=== PATIENT | male | born 1965 | race Caucasian/White ===

== ENCOUNTER 2016-10-23 16:00 | Emergency (ER) | payer MEDICAID ==
[2016-10-23 16:15] VITALS: BMI 26.6
--- NOTE | 2016-10-23 16:31 | C.PDOC ---
History Of Present Illness 51 y/o male presents to ED with complaints of Left elbow and foot pain since yesterday. S/P accidentally tripped and fell landing on L elbow. Pain is worse with moment but is weight bearing. Patient denies numbness, weakness or any other complaints at this time. CO L ELBOW AND L FOOT PAIN YEST. S/P ACCID TRIP AND FALL, LANDED ON L ELBOW. PAIN WORSE W MOVEMENT, WT BEAR. NO OTHER ASSOC SX EXAM LUE AROM FULL SUPINATION WO DIFF; ATRAUM. TEND GEN L OLECRANON PROCESS. L FOOT TEND BASE L 1 AND 3/4 TOE. NO SWELL, DEFORM SKIN INTACT ATRAUM NEURO INTACT - HPI Time Seen by Provider: 10/23/16 16:22 Chief Complaint (Nursing): Upper Extremity Problem/Injury History Per: Patient History/Exam Limitations: no limitations Onset/Duration Of Symptoms: Days Location Of Injury: Left: Elbow, Foot Past Medical History Reviewed: Historical Data, Nursing Documentation, Vital Signs Vital Signs: Last Vital Signs Temp 98.1 F 10/23/16 17:47 Pulse 90 10/23/16 17:47 Resp 16 10/23/16 17:47 BP 144/90 10/23/16 17:47 Pulse Ox 98 10/23/16 17:47 - Medical History PMH: Anxiety, Depression, Diabetes, HTN, Hypercholesterolemia, Hyperlipidemia, Migraine - [facility] Procedures INDIVID PSYCHOTHERAP NEC (02/13/14) OTHER GROUP THERAPY (02/13/14) Family History: States: Unknown Family Hx - Social History Hx Alcohol Use: No Hx Substance Use: No - Immunization History Hx Tetanus Toxoid Vaccination: Yes Hx Influenza Vaccination: Yes Hx Pneumococcal Vaccination: Yes Review Of Systems Except As Marked, All Systems Reviewed And Found Negative. Constitutional: Negative for: Weakness Eyes: Negative for: Vision Change Gastrointestinal: Negative for: Nausea, Vomiting, Diarrhea Musculoskeletal: Positive for: Arm Pain, Foot Pain Skin: Negative for: Rash Neurological: Negative for: Headache, Dizziness Physical Exam - Physical Exam Appears: Non-toxic, No Acute Distress Skin: Normal Color, Warm Head: Atraumatic, Normacephalic Eye(s): bilateral: Normal Inspection Oral Mucosa: Moist Extremity: Normal ROM (LUE), Tenderness (General Left Tenderness Olecranon process, Left foot Tenderness Base Left 1 and 3/4 Toe), No Deformity, No Swelling, Other (Full Supination without differential) Extremity: Bilateral: Atraumatic Neurological/Psych: Oriented x3, Normal Speech, Normal Cognition ED Course And Treatment O2 Sat by Pulse Oximetry: 97 (RA) Pulse Ox Interpretation: Normal - Other Rad L ELBOW X-Ray: Interpreted by Me (NEG) L FOOT X-Ray: Interpreted by Me (NEG) Disposition Counseled Patient/Family Regarding: Studies Performed, Diagnosis, Need For Followup - Disposition Referrals: YOUR,PMD [Other] Disposition: HOME/ ROUTINE Disposition Time: 17:00 Condition: GOOD Additional Instructions: TAKE MOTRIN AND/OR TYLENOL DIRECTED FOR PAIN Instructions: Elbow Sprain (ED), Foot Contusion (ED) Forms: Work Excuse - Clinical Impression Clinical Impression: Toe contusion, Elbow contusion - PA / POTATO INSPECTOR / Resident Statement MD/DO has reviewed & agrees with the documentation as recorded. MD/DO has examined the patient and agrees with the treatment plan. - Scribe Statement The provider has reviewed the documentation as recorded by the [employer] All medical record entries made by the Walker were at my direction and personally dictated by me. I have reviewed the chart and agree that the record accurately reflects my personal performance of the history, physical exam, medical decision making, and the department course for this patient. I have also personally directed, reviewed, and agree with the discharge instructions and disposition.
[2016-10-23 17:48] VITALS: BP 144/90; PULSE 90; RESP 16; TEMP 98.1
--- NOTE | 2016-10-23 17:51 | RAD ---
PROCEDURE: Radiographs of the left elbow. HISTORY: TRAUMA COMPARISON: No prior. FINDINGS: BONES: No acute fracture. Small olecranon spur. JOINTS: Normal. No osteoarthritis. SOFT TISSUES: Normal. JOINT EFFUSION: None. OTHER FINDINGS: None IMPRESSION: No acute findings related to/accounting for the clinical presentation. Concordant results with the preliminary interpretation rendered by the emergency department physician procedure.
--- NOTE | 2016-10-23 17:56 | RAD ---
PROCEDURE: Left Foot Radiographs. HISTORY: Recent trauma. COMPARISON: None. FINDINGS: BONES: Normal. No fracture. JOINTS: Normal. SOFT TISSUES: Normal. OTHER FINDINGS: None. IMPRESSION: No significant or acute findings to account for/ related to the clinical presentation. Concordant results with the preliminary interpretation rendered by the emergency department physician procedure.
[2016-10-23 18:13] VITALS: O2SAT 97
== END 2016-10-23 18:10 | disposition home or self-care (01) ==
LOC: C.ER 16:00
DX: S50.02XA Contusion of left elbow, initial encounter (principal); S90.112A Contusion of left great toe without damage to nail, initial encounter; S90.122A Contusion of left lesser toe(s) without damage to nail, initial encounter; W01.0XXA Fall on same level from slipping, tripping and stumbling without subsequent striking against object, initial encounter

== ENCOUNTER 2017-07-25 17:59 | Emergency (ER) | payer MEDICAID ==
[2017-07-25 18:13] VITALS: BMI 24.7
[2017-07-25 18:14] VITALS: BP 129/83; PULSE 97; TEMP 98.2; O2SAT 98
[2017-07-25] MEDS ORDERED: Promethazine/Cod 6.25mg-10mg/5ml Syr UD PO STA (18:57)
[2017-07-25] MEDS ORDERED: Albuterol 0.083% Inhal Sol (2.5 mg/3 mL) UD IH STA (18:58)
[2017-07-25] MEDS ORDERED: Albuterol 0.083% Inhal Sol (2.5 mg/3 mL) UD ONE (19:10)
[2017-07-25] MEDS ORDERED: Promethazine/Cod 6.25mg-10mg/5ml Syr UD ONE (19:12)
--- NOTE | 2017-07-25 19:58 | C.PDOC ---
History Of Present Illness 51 yo male w/PMhx of HTN, NIDDM come inf or evaluation of cold sx for past 2 weeks associated with malaise, nasal congestion, runny nose, productive cough with yellow sputum. Pt reports, cough worse over time, constant, worse at night time. Otherwise, pt denies high fever, headache, dizziness, neck pain, drooling , dysphagia, dyspnea, SOB, CP, wheezing, abd. pain, V/D, back pain. Ambulate to ED for evaluation, not in nay apparent distress. Time Seen by Provider: 07/25/17 18:24 Chief Complaint (Nursing): Flu-like Symptoms History Per: Patient Onset/Duration Of Symptoms: Gradual Past Medical History Reviewed: Historical Data, Nursing Documentation, Vital Signs Vital Signs: Last Vital Signs Temp 98.2 F 07/25/17 18:13 Pulse 97 H 07/25/17 18:13 Resp 20 07/25/17 20:30 BP 129/83 07/25/17 18:13 Pulse Ox 98 07/25/17 20:00 - Medical History PMH: Anxiety, Depression, Diabetes, HTN, Hypercholesterolemia, Hyperlipidemia, Migraine Denies: Hepatitis, HIV, Chronic Kidney Disease, Seizures, Sexually Transmitted Disease - [facility] Procedures INDIVID PSYCHOTHERAP NEC (02/13/14) OTHER GROUP THERAPY (02/13/14) Family History: States: Unknown Family Hx - Social History Hx Tobacco Use: No Hx Alcohol Use: No Hx Substance Use: No - Immunization History Hx Tetanus Toxoid Vaccination: Yes Hx Influenza Vaccination: Yes Hx Pneumococcal Vaccination: Yes Review Of Systems Except As Marked, All Systems Reviewed And Found Negative. Constitutional: Positive for: Malaise. Negative for: Fever ENT: Positive for: Nose Discharge, Nose Congestion. Negative for: Ear Discharge , Throat Pain, Throat Swelling Cardiovascular: Negative for: Chest Pain, Palpitations, Edema, Light Headedness Respiratory: Positive for: Cough. Negative for: Shortness of Breath, Wheezing Gastrointestinal: Negative for: Nausea, Vomiting, Abdominal Pain, Diarrhea Genitourinary: Negative for: Dysuria Musculoskeletal: Negative for: Neck Pain Skin: Negative for: Rash Neurological: Negative for: Altered Mental Status, Headache, Dizziness Physical Exam - Physical Exam Appears: Well, Non-toxic, No Acute Distress Skin: Normal Color, Warm, Dry, No Rash Head: Normacephalic Eye(s): bilateral: PERRL Ear(s): Bilateral: Normal Nose: No Flaring, Discharge (nasal congestion with clear scant rhinorrhea), No Deformity, No Tenderness Oral Mucosa: Moist Tongue: Normal Appearing Lips: Normal Appearing Throat: Erythema (mild B/L), No Drooling Neck: Trachea Midline, Supple Cardiovascular: Rhythm Regular, No Murmur, No JVD, Other ((-) carotid bruits B/L ) Respiratory: No Decreased Breath Sounds, No Accessory Muscle Use, No Rales, No Rhonchi, No Stridor, Wheezing (scattered Right basilar expiratory wheezing) Gastrointestinal/Abdominal: Soft, No Tenderness, No Distention, No Guarding Back: No CVA Tenderness Extremity: No Pedal Edema, No Deformity Neurological/Psych: Oriented x3, Normal Speech ED Course And Treatment O2 Sat by Pulse Oximetry: 98 Pulse Ox Interpretation: Normal - Radiology CXR: Interpreted by Me, Viewed By Me CXR Interpretation: Yes: No Acute Disease Progress Note: On re-evaluation, pt is afebrile, hemodynamicaly stable. Non- toxic. Tolerate Po well in ED. PulsEOx 98% RA. neck: Supple, (-) meningeal sign. ENT: north cute findings. Lungs: CTA B/L, BS equal B/L. CVS: (+)S1S2, reg. Abd: benign, (-) guaridng, (-) rebound. Neuorlogicaly intact. CXR- normal study. Pt has clinical findings c/w acute bronchitis. Pt advised to F/ u with PMD in 2-3 days for re-eavl. return to Ed if any worsening or new changes. Disposition Counseled Patient/Family Regarding: Studies Performed, Diagnosis, Need For Followup, Rx Given - Disposition Referrals: Laura Huitron MD [Staff Provider] - Disposition: HOME/ ROUTINE Disposition Time: 19:56 Condition: STABLE Additional Instructions: Encourage fluids take medication as prescribed Follow up with PMD in 21-3 days for re-evaluation. Return to ED if any worsening or new changes. Prescriptions: Azithromycin [Zithromax] 250 mg PO DAILY #4 tab Prednisone [Deltasone] 40 mg PO DAILY #6 tablet Promethazine/Codeine [Phenergan/Codeine Oral Syrup] 10 ml PO TID #90 ml Instructions: Acute Bronchitis Forms: [employer] (Georgian) - Clinical Impression Clinical Impression: Bronchitis
[2017-07-25 20:31] VITALS: RESP 20
--- NOTE | 2017-07-26 09:11 | RAD ---
HISTORY: Cough COMPARISON: No prior. TECHNIQUE: Chest PA and lateral FINDINGS: LUNGS: No consolidation. The infrahilar peribronchial are vascular markings -especially the infrahilar bronchial markings have slight increased thickening surrounding them chronicity of this is unknown. PLEURA: No significant pleural effusion identified. No pneumothorax apparent. CARDIOVASCULAR: Normal. OSSEOUS STRUCTURES: Thoracic spondylosis VISUALIZED UPPER ABDOMEN: Normal. OTHER FINDINGS: None. IMPRESSION: No consolidative infiltrate. Possible bilateral infrahilar peribronchial thickening -nonspecific can be seen with peribronchial inflammatory changes - for example bronchitis. Chronicity unknown.
== END 2017-07-25 20:30 | disposition home or self-care (01) ==
LOC: C.ER 17:59
DX: J40 Bronchitis, not specified as acute or chronic (principal); I10 Essential (primary) hypertension; E11.9 Type 2 diabetes mellitus without complications; E78.00 Pure hypercholesterolemia, unspecified; E78.5 Hyperlipidemia, unspecified

== ENCOUNTER 2018-09-15 21:02 | Emergency (ER) | payer MEDICAID ==
[2018-09-15] MEDS ORDERED: Sodium Chloride 0.9% 1,000 ML IV ONE ×2 (21:54)
[2018-09-15] MEDS ORDERED: (Novolin R) Insulin Human Regular 100 units/ml vial IVP ONE (21:55)
[2018-09-15 22:22] LABS: BASO % 0.8 % (0.0-2.0); EOS # 0.1 K/uL (0.0-0.7); EOS % 1.3 % (0.0-4.0); HEMOGLOBIN 15.4 g/dL (12.0-18.0); LYMPH # 2.1 K/uL (1.0-4.3); MEAN CELL VOLUME 79.2 fL (80.0-94.0); MEAN CORPUSCULAR HEMOGLOBIN 25.7 pg (27.0-31.0); MEAN CORPUSCULAR HGB CONC 32.5 g/dL (33.0-37.0); MEAN PLATELET VOLUME 8.3 fL (7.2-11.7); MONO # 0.5 K/uL (0.0-0.8); MONO % 9.5 % (0.0-10.0); NEUT # 2.5 K/uL (1.8-7.0); NEUT % 47.4 % (50.0-75.0); NRBC % 0.1 % (0.0-2.0); RED CELL DISTRIBUTION WIDTH 13.8 % (11.5-14.5); WHITE BLOOD COUNT 5.2 K/uL (4.8-10.8)
[2018-09-15] MEDS ORDERED: Sodium Chloride 0.9% 2,000 ML ONE (22:32)
[2018-09-15] MEDS ORDERED: (Novolin R) Insulin Human Regular 100 units/ml vial ONE (22:32)
[2018-09-15 22:38] LABS: ALB/GLOB RATIO 1.5 (1.0-2.1); ALBUMIN 4.4 g/dL (3.5-5.0); ALT/SGPT 22 U/L (21-72); AST/SGOT 19 U/L (17-59); BLOOD UREA NITROGEN 12 mg/dL (9-20); CALCIUM 9.6 mg/dl (8.6-10.4); GFR NON-AFRICAN AMERICAN > 60
[2018-09-15 22:45] LABS: SQUAMOUS EPITHIAL < 1 /hpf (0-5); URINE BILIRUBIN NEGATIVE (NEGATIVE); URINE BLOOD NEGATIVE (NEGATIVE); URINE CLARITY Clear (Clear); URINE COLOR Straw (YELLOW); URINE GLUCOSE (UA) 3+ mg/dL (Normal); URINE LEUKOCYTE ESTERASE NEG Leu/uL (Negative); URINE PROTEIN NEGATIVE (NEGATIVE); URINE UROBILINOGEN NORMAL mg/dL (0.2-1.0)
--- NOTE | 2018-09-15 22:46 | C.PDOC ---
History Of Present Illness 52-year-old male presents to the ED for evaluation of elevated blood sugar. Patient states he stopped taking his medication for 3 months and has not been feeling well. Patient also complains of non-productive cough. He denies fever, chills or any pain at this time. Chief Complaint (Nursing): Cough, Cold, Congestion History Per: Patient History/Exam Limitations: no limitations Onset/Duration Of Symptoms: Hrs Current Symptoms Are (Timing): Still Present Additional History Per: Patient Past Medical History Reviewed: Historical Data, Nursing Documentation, Vital Signs Vital Signs: Last Vital Signs Temp 98.6 F 09/15/18 21: Pulse 83 09/15/18 21:17 Resp 20 09/15/18 21:17 BP 148/82 09/15/18 21: Pulse Ox 99 09/15/18 21:17 Primary Care Provider: Laura Huitron - Medical History PMH: Hypercholesterolemia Surgical History: No Surg Hx Family History: States: Unknown Family Hx - Social History Hx Alcohol Use: No Hx Substance Use: No Review Of Systems Constitutional: Positive for: Other (elevated blood sugar ). Negative for: Fever, Chills Respiratory: Positive for: Cough. Negative for: Sputum Physical Exam - Physical Exam Appears: Non-toxic, No Acute Distress Skin: Normal Color, Warm, Dry Head: Atraumatic, Normacephalic Eye(s): bilateral: Normal Inspection Oral Mucosa: Moist Neck: Supple Chest: Symmetrical, No Deformity, No Tenderness Cardiovascular: Rhythm Regular, No Murmur Respiratory: Normal Breath Sounds, No Rales, No Rhonchi, No Wheezing Gastrointestinal/Abdominal: Soft, No Tenderness, No Guarding, No Rebound Extremity: Normal ROM, Capillary Refill (less than 2 seconds ) Neurological/Psych: Oriented x3, Normal Speech, Normal Cognition, Other (neurolo gically intact, no focal deficits ) ED Course And Treatment - Laboratory Results Result Diagrams: 09/15/18 22:09/15/18: Lab Results: Total Bilirubin 0.4 mg/dL (0.2-1.3) 09/15/18 22: AST 19 U/L (17-59) 09/15/18 22: ALT 22 U/L (21-72) 09/15/18: Alkaline Phosphatase 94 U/L (38-126) 09/15/18 22:19 Total Protein 7.2 g/dL (6.3-8.3) 09/15/18 22:19 Albumin 4.4 g/dL (3.5-5.0) 09/15/18 22:19 Globulin 2.9 gm/dL (2.2-3.9) 09/15/18 22:19 Albumin/Globulin Ratio 1.5 (1.0-2.1) 09/15/18 22:19 O2 Sat by Pulse Oximetry: 99 (on RA) Pulse Ox Interpretation: Normal - Radiology CXR: Interpreted by Me, Viewed By Me CXR Interpretation: Yes: No Acute Disease, Other (normal chest film). No: Infiltrates Progress Note: Bloodwork, urinalysis, and CXR ordered and reviewed. Patient given Insulin and IV Fluids. Disposition Counseled Patient/Family Regarding: Diagnosis - Disposition Referrals: [facility] [Outside] Disposition: HOME/ ROUTINE Disposition Time: 00:15 Condition: STABLE Prescriptions: Glimepiride [Amaryl] 4 mg PO BID #30 tablet MetFORMIN [glucoPHAGE] 1,000 mg PO BID #60 tab Simvastatin 40 mg PO DAILY #30 tablet Instructions: Hyperglycemia, Adult (DC), Type 2 Diabetes Forms: [employer] (Pashto) - POA Present On Arrival: None - Clinical Impression Clinical Impression: Hyperglycemia, Viral disease, Diabetes mellitus - Scribe Statement The provider has reviewed the documentation as recorded by the Scribe (Divina Caban) Provider Attestation: All medical record entries made by the Scribe were at my direction and personally dictated by me. I have reviewed the chart and agree that the record accurately reflects my personal performance of the history, physical exam, medical decision making, and the department course for this patient. I have also personally directed, reviewed, and agree with the discharge instructions and disposition.
[2018-09-16 02:28] VITALS: BP 152/84; PULSE 81; RESP 16; TEMP 98; O2SAT 97
--- NOTE | 2018-09-16 09:20 | RAD ---
Chest x-ray two views HISTORY: Cough. COMPARISON: 07/25/2017 FINDINGS: No focal infiltrate or effusion. Heart size within normal limits. Degenerative changes in the spine. Impression: No focal infiltrate or effusion.
== END 2018-09-16 00:20 | disposition home or self-care (01) ==
LOC: C.ER 21:02 → MERGE 21:02 → C.ER 09-16 00:20
DX: E11.65 Type 2 diabetes mellitus with hyperglycemia (principal); B34.9 Viral infection, unspecified; E78.00 Pure hypercholesterolemia, unspecified
CPT/HCPCS: 71046; 80053; 81001; 82009; 82948; 85025; 96361; 96374; 99285; J7030